=== PATIENT | female | born 1970 | race Caucasian/White ===

== ENCOUNTER → 2020-11-21 | Outpatient (CLI) | payer OTHER ==
[2020-11-21 13:06] LABS: HEMOGLOBIN 14.1 gm/dl (12.3-15.3); RED BLOOD COUNT 4.8 M/UL (4.00-5.10); WHITE BLOOD COUNT 11.6 K/UL (4.5-11.0)
[2020-11-21 13:26] LABS: BUN/CREATININE RATIO 17 (0-10)
== END ==
LOC: LAB 11:52
PROVIDERS: Internal Medicine
DX: M32.9 Systemic lupus erythematosus, unspecified (principal); D89.89 Other specified disorders involving the immune mechanism, not elsewhere classified; M25.50 Pain in unspecified joint; Z92.29 Personal history of other drug therapy
CPT/HCPCS: 36415; 80053; 82570; 84156; 85025